=== PATIENT | male | born 1965 | race Caucasian/White ===

== ENCOUNTER → 2024-08-11 08:56 | Outpatient (REF) | payer BC, SELFPAY ==
--- NOTE | 2024-08-11 11:29 | CARDSERVDEF ---
Echocardiogram with Definity completed after protocol screening completed. Allergies verified.
Patent IV site: _new start 22P LAC 1st attempt
here for definity stress echo.____
IV site flushed with 0.9% NaCl pre and post administration.
Diluted bolus method utilized to enhance visualization of ventricular pearce.
Total volume given: __2.0 and 2.5__ mL in divided doses, on treadmill per protocol, back to bed, 2nd images by echosonographer
Patient tolerated all procedures well without complications.
site dcd at completion of test.
== END ==
LOC: RCS 08:56
PROVIDERS: ATTENDING PHYSICIAN Internal Medicine Cardiovascular Disease; FAMILY PHYSICIAN Family Medicine
DX: I10 Essential (primary) hypertension (principal); R94.31 Abnormal electrocardiogram [ECG] [EKG]; Z82.49 Family history of ischemic heart disease and other diseases of the circulatory system
CPT/HCPCS: 93017; 93350; Q9957

== ENCOUNTER → 2024-08-12 08:12 | Outpatient (REF) | payer BC, SELFPAY | LOC: RCS 08:12 | PROVIDERS: ATTENDING PHYSICIAN Internal Medicine Cardiovascular Disease; FAMILY PHYSICIAN Family Medicine | DX: I10 Essential (primary) hypertension (principal) | CPT/HCPCS: 93306; Q9950 ==